=== PATIENT | female | born 1980 | race Caucasian/White ===

== ENCOUNTER 2017-12-10 08:08 | Day surgery (SDC) | payer OTHER ==
[~2017-12-10 08:08] MED LIST: Lactated Ringers 1,000 ML IV SCH; Lidocaine 1%/Sod Bicarbonate in NS 8.4% 1 ML Syringe IDERM PRN; Sodium Chloride 0.9% 10 ML Syringe FLUSH PRN
[2017-12-10] MEDS ORDERED: Bupivacaine 0.25% 30 ML SDV ONE (08:20)
[2017-12-10] MEDS ORDERED: Lidocaine 1% 30 ML SDV ONE (08:20)
--- NOTE | 2017-12-10 22:09 | PCM.OPNOTE ---
- General Post-Op/Procedure Note Date of Surgery/Procedure: 12/10/17 Operative Procedure(s): left carpal tunnel release Pre Op Diagnosis: left median nerve compression neuropathy Post-Op Diagnosis: Same Anesthesia Technique: Local Primary Surgeon: Reji Torres Organ Tuner Electronic: Lizet Langford in mLs: 5 Complications: None Condition: Good
--- NOTE | 2017-12-10 22:51 | OR ---
DATE OF OPERATION: 12/10/2017 SURGEON: Reji Torres MD OPERATION PERFORMED: Left carpal tunnel release. PREOPERATIVE DIAGNOSIS: Left median nerve compression neuropathy. POSTOPERATIVE DIAGNOSIS: Left median nerve compression neuropathy. ANESTHESIA: Local only. ANESTHESIOLOGIST: None. NUISANCE WILDLIFE SPECIALIST: Lizet Langford PA-C. ESTIMATED BLOOD LOSS: Less than 5 mL. COMPLICATIONS: None. CONDITION: Stable. DESCRIPTION OF PROCEDURE: The patient was identified in the preoperative holding area. Proper site was marked and identified by the surgeon. The patient was taken back to the operating theater after adequate anesthesia, the patient's left upper extremity was sterilely prepped and draped in the usual sterile fashion. Esmarch was then used as a tourniquet on the forearm. 1% lidocaine without epinephrine and 0.25% Marcaine without epinephrine used to anesthetize palmar cutaneous branch of the median nerve as well as the incisional site using Suarez's cardinal line and ulnar border of the 4th digit. Incision was then made, blunt dissection was taken down at the palmar cutaneous fascia. Palmar cutaneous fascia was then incised with a [place] blade. Transverse carpal ligament was identified. A small rent was made in the transverse carpal ligament. Then, using a tenotomy scissors under direct visualization, a takedown of the transverse carpal ligament was done all the way distally, stopping short of palmar arch, it was found to be adequately released. Attention was turned proximally at this time. The superficial forearm fascia as well as transverse carpal ligament was incised using a tenotomy scissors making sure to keep the tips ulnar to protect the palmar cutaneous branch of median nerve. At this time, it was released both proximally and distally. Adequate saline was irrigated through the wound. 4-0 nylon simple suture was used for closure of the skin. The patient had a sterile soft dressing applied and was sent to PACU in stable condition. MMODAL /[id number]
== END 2017-12-10 10:33 | disposition home or self-care (01) ==
LOC: JD.SDS 08:08
PROVIDERS: ATTEND Orthopaedic Surgery
DX: G56.12 Other lesions of median nerve, left upper limb (principal); Z88.0 Allergy status to penicillin; Z88.2 Allergy status to sulfonamides; Z87.891 Personal history of nicotine dependence
CPT/HCPCS: 36415; 80048; 81025; 85025; 87641; J3490